=== PATIENT | female | born 1965 | race Caucasian/White ===

== ENCOUNTER 2023-06-30 04:38 | Day surgery (SDC) | payer OTHER ==
[2023-06-28 15:52] VITALS: BMI 40.4
[2023-06-30 09:05] VITALS: RESP 18; TEMP 97.9
[2023-06-30 09:25] VITALS: BP 128/62; PULSE 62
== END 2023-06-30 09:35 | disposition home or self-care (01) ==
LOC: JASU-ENDO 04:38
PROVIDERS: ATTEND Internal Medicine Gastroenterology
PROC: 0DBH8ZX Excision of Cecum, Via Natural or Artificial Opening Endoscopic, Diagnostic (ICD-10-PCS; principal; 2023-06-30 08:30)
DX: Z12.11 Encounter for screening for malignant neoplasm of colon (principal); D12.0 Benign neoplasm of cecum; K63.5 Polyp of colon
CPT/HCPCS: 88305-TC